=== PATIENT | female | born 1955 | race Caucasian/White ===

== ENCOUNTER 2025-07-17 08:55 | Emergency (ER) | payer MEDICAID ==
[~2025-07-17] VITALS: Ht 167.6 cm; Wt 120.0 kg
[2025-07-17 08:57] VITALS: O2SAT 92
[2025-07-17] MEDS ORDERED: DOXYCYCLINE HYCLATE 100 MG/VIAL IV ONE (09:30)
[2025-07-17 09:46] LABS: HEMATOCRIT. 27.4 % (36.0-48.0); HEMOGLOBIN. 8.1 g/dL (12.0-16.0); MEAN PLATELET VOLUME 7.2 fl (7.4-10.4); PLATELET 575 x1000/uL (130-400); RED BLOOD CELL COUNT 4.29 mill/uL (4.2-5.4); RED CELL DISTRIBUTION WIDTH 19.3 % (11.6-14.6)
[2025-07-17] MEDS: CEFTRIAXONE 1GM/50ML 50 ML IV ONE (09:47)
[2025-07-17] MEDS: SODIUM CHLORIDE 0.9% (SEPSIS BOLUS) IV ONE (09:48)
[2025-07-17 10:01] LABS: INR 1.1
[2025-07-17 10:02] LABS: CREATININE 0.9 mg/dL (0.6-1.0); UREA NITROGEN BLOOD 16 mg/dL (9-23)
[2025-07-17 10:04] LABS: ASPARTATE AMINOTRANSFERASE 32 IU/L (<34); BILIRUBIN DIRECT 0.6 mg/dL (<=3.0); BILIRUBIN TOTAL 1.2 mg/dL (0.1-1.0); PROTEIN TOTAL 7.0 g/dL (6.0-8.3)
[2025-07-17 10:12] LABS: BAND% 15.0 % (1.0-6.0); LYMPHOCYTES % MANUAL 2.0 % (20.0-60.0); MONOCYTES % MANUAL 6.0 % (2.0-8.0); NEUTROPHILS % MANUAL 77.0 % (45.0-75.0)
[2025-07-17 10:13] LABS: PLATELET ESTIMATE INCREASED
[2025-07-17] MEDS: DOXYCYCLINE 100MG/100ML 100 ML IV NR (10:14)
[2025-07-17] MEDS: ACETAMINOPHEN 500MG TABLET PO SCH (10:16)
[2025-07-17] MEDS: ADENOSINE 3 MG/ML 2ML VIAL IV ONE ×2 (11:03→11:04)
[2025-07-17] MEDS: DILTIAZEM HCL 5MG/ML 5ML VIAL IV ONE (11:18)
[2025-07-17] MEDS: AMIODARONE HCL 50MG/ML 3ML VIAL IV ONE ×2 (12:00→12:52)
[2025-07-17] MEDS ORDERED: SODIUM CHLORIDE 0.9% 1,000 ML IV SCH (12:30)
[2025-07-17] MEDS ORDERED: VANCOMYCIN 1G PREMIX 200 ML IV SCH (12:30)
[2025-07-17] MEDS ORDERED: DIPHENHYDRAMINE 50MG/ML VIAL IV PRN (12:30)
[2025-07-17] MEDS ORDERED: ACETAMINOPHEN 325MG TABLET PO PRN ×2 (12:30)
[2025-07-17] MEDS ORDERED: KETOROLAC 15MG/ML VIAL IV PRN (12:30)
[2025-07-17] MEDS ORDERED: ONDANSETRON HCL 4MG/2ML INJ IV PRN (12:30)
[2025-07-17] MEDS ORDERED: ZOLPIDEM TARTRATE 5MG TABLET PO PRN (12:30)
[2025-07-17] MEDS ORDERED: DILTIAZEM HCL 5MG/ML 5ML VIAL IV ONE (13:15)
[2025-07-17] MEDS ORDERED: DILTIAZEM HCL 125 MG in DEXT 5% WATER 100 ML IV ONE (13:15)
[2025-07-17 14:00] VITALS: BP 100/55; PULSE 160; RESP 28; TEMP 37.1; O2SAT 95
[2025-07-17] MEDS ORDERED: VANCOMYCIN 2GM PMX (XELLIA) 400 ML IV SCH (14:30)
[2025-07-17 14:57] LABS: T4 FREE 0.79 ng/dL (0.89-1.76)
[2025-07-18] MEDS ORDERED: VANCOMYCIN 750MG PREMIX 150 ML IV SCH (03:00)
== END 2025-07-17 14:15 | disposition left against medical advice (07) ==
LOC: ER 08:55 → EDBEDREQ 10:38 → EDBEDREQTM 10:38 → CANRESERV 11:49 → ENRESERV 11:49 → EDBEDREQSVC 12:43 → ENRESERV 12:51 → EDBEDREQSVC 13:12 → EDBEDREQ 13:12 → EDBEDREQTM 13:12 → ER 14:15 → CMPBEDREQ 15:08
DX: A41.9 Sepsis, unspecified organism (principal); R65.20 Severe sepsis without septic shock; I47.10 Supraventricular tachycardia, unspecified; L03.113 Cellulitis of right upper limb; Z53.29 Procedure and treatment not carried out because of patient's decision for other reasons; Z20.822 Contact with and (suspected) exposure to COVID-19
CPT/HCPCS: 99291; 96365; 96375; 96361; 87426; 80076; 80048; 84439; 83605; 84443; 85025; 85610; 87040; 36415; 84145; 71045; 93005; 96368; 96376; J0153; J0282; J0696; J3490 ×3; J7060; J7030; J3373